=== PATIENT | male | born 1995 | race Caucasian/White ===

== ENCOUNTER 2017-06-01 16:03 | Inpatient (IN) | payer MEDICAID, OTHER ==
[2017-06-01 17:10] LABS: BASO # 0.1 K/uL (0.0-0.2); BASO % 0.8 % (0.0-2.0); EOS # 0.2 K/uL (0.0-0.7); EOS % 2.1 % (0.0-4.0); HEMOGLOBIN 16.2 g/dL (12.0-18.0); LYMPH # 3.6 K/uL (1.0-4.3); LYMPH % 31.5 % (20.0-40.0); MEAN CELL VOLUME 84.3 fL (80.0-94.0); MEAN CORPUSCULAR HEMOGLOBIN 28.2 pg (27.0-31.0); MEAN CORPUSCULAR HGB CONC 33.4 g/dL (33.0-37.0); MEAN PLATELET VOLUME 7.9 fL (7.2-11.7); MONO # 0.8 K/uL (0.0-0.8); NEUT # 6.7 K/uL (1.8-7.0); NEUT % 58.6 % (50.0-75.0); RBC 5.75 Mil/uL (4.40-5.90); RED CELL DISTRIBUTION WIDTH 13.2 % (11.5-14.5); WHITE BLOOD COUNT 11.4 K/uL (4.8-10.8)
[2017-06-01 17:13] LABS: SQUAMOUS EPITHIAL < 1 /hpf (0-5); URINE AMORPHOUS SEDIMENT RARE /ul (<OCC); URINE BILIRUBIN NEGATIVE (NEGATIVE); URINE BLOOD NEGATIVE (NEGATIVE); URINE CLARITY Hazy (Clear); URINE COLOR Yellow (YELLOW); URINE GLUCOSE (UA) NORMAL (Normal); URINE LEUKOCYTE ESTERASE NEG Leu/uL (Negative); URINE NITRATE NEGATIVE (NEGATIVE); URINE PROTEIN NEGATIVE (NEGATIVE); URINE UROBILINOGEN NORMAL mg/dL (0.2-1.0)
[2017-06-01 17:24] LABS: ACETAMINOPHEN < 10.0 ug/mL (10.0-30.0); SALICYLATE < 1.0 mg/dL 1
[2017-06-01 17:25] LABS: ALBUMIN 4.3 g/dL (3.5-5.0); ALT/SGPT 85 U/L (21-72); AST/SGOT 36 U/L (17-59); BLOOD UREA NITROGEN 13 mg/dL (9-20); GFR AFRICAN-AMERICAN > 60; GFR NON-AFRICAN AMERICAN > 60
[2017-06-01 17:26] LABS: BARBITURATES, UR NEGATIVE (NEGATIVE); BENZODIAZEPINES, UR NEGATIVE (NEGATIVE); OPIATES, UR NEGATIVE (NEGATIVE); PHENCYCLIDINE, UR NEGATIVE (NEGATIVE)
--- NOTE | 2017-06-01 17:51 | C.PDOC ---
History Of Present Illness Patient is a 21 y/o male who presents to the ED stating " I want to kill myself ". No plan. Patient denies seeing psychiatrist, Hx of antidepressants or admissions for similar complaints. Admits using cannabis a few nights ago and being a smoker. No pain. Time Seen by Provider: 06/01/17 16:36 Chief Complaint (Nursing): Psychiatric Evaluation History Per: Patient History/Exam Limitations: no limitations Current Symptoms Are (Timing): Still Present Associated Symptoms: Suicidal Thoughts. denies: Suicidal Plan Recent travel outside of the [place]: No Past Medical History Reviewed: Historical Data, Nursing Documentation, Vital Signs Vital Signs: Last Vital Signs Temp 98.4 F 06/01/17 18:27 Pulse 73 06/01/17 18:27 Resp 16 06/01/17 18:27 BP 128/80 06/01/17 18:27 Pulse Ox 98 06/01/17 18:27 - Medical History PMH: Anxiety, Asthma, Depression Surgical History: No Surg Hx Family History: States: No Known Family Hx - Social History Hx Tobacco Use: Yes Hx Alcohol Use: No Hx Substance Use: No - Immunization History Hx Tetanus Toxoid Vaccination: No Hx Influenza Vaccination: No Hx Pneumococcal Vaccination: No Review Of Systems Psych: Positive for: Suicidal ideation Physical Exam - Physical Exam Appears: Well, Non-toxic, No Acute Distress Skin: Normal Color, Warm, Dry Head: Atraumatic, Normacephalic Nose: Normal Oral Mucosa: Moist Chest: Symmetrical Cardiovascular: Rhythm Regular, No Murmur Respiratory: Normal Breath Sounds, No Accessory Muscle Use Neurological/Psych: Oriented x3, Normal Speech, Normal Cognition, No Romberg, Other (no focal deficits) ED Course And Treatment - Laboratory Results Result Diagrams: 06/01/17 17:05 06/01/17 17:05 O2 Sat by Pulse Oximetry: 98 Progress Note: Crisis notified. Patient is 1:1. tent worker evaluted pt and discussed case with Dr Mar, agreed upon admission. Disposition - Disposition Disposition: HOSPITALIZED Disposition Time: 18:54 Condition: STABLE - Clinical Impression Clinical Impression: MDD (major depressive disorder) - Scribe Statement The provider has reviewed the documentation as recorded by the Scribe Susan Bhat All medical record entries made by the Scribe were at my direction and personally dictated by me. I have reviewed the chart and agree that the record accurately reflects my personal performance of the history, physical exam, medical decision making, and the department course for this patient. I have also personally directed, reviewed, and agree with the discharge instructions and disposition.
--- NOTE | 2017-06-01 20:07 | PCM.BM ---
Treatment Plan Problems - Problems identified on initial assessmt Suicidal ideation Date Initiated: 06/01/17 Time Initiated: 19:45 Assessment reference: NA Status: Active Depression Date Initiated: 06/01/17 Time Initiated: 19:45 Assessment reference: NA Status: Active Treatment assets and liabiliti Patient Assests: cooperative, ADL independent, good support system, negotiates basic needs Patient Liabilities: substance abuse - Milieu Protocol Maintain good personal hygiene: daily Encourage regular showers, daily Remind patient to perform daily oral care, daily Assist patient to perform ADL's Maintain personal safety: every shift Educate patient to report safety concerns to staff, every shift Monitor environment for contraband/sharps Medication safety: Monitor for expected outcome, potential side effects: every shift, Assess barriers to learning: every shift, Assess readiness for medication education: every shift
[2017-06-01 22:43] VITALS: O2SAT 97
[2017-06-02] MEDS ORDERED: buPROPion SR 150 MG TABLET PO SCH (10:00)
[2017-06-03] MEDS ORDERED: Pneumococcal 23-Valent Vaccine IM ONE (10:00)
[2017-06-03] MEDS ORDERED: Influenza Vaccine 60 mcg/0.5 mL SYR (4YR UP) IM ONE (10:00)
[2017-06-03 10:21] VITALS: PULSE 75
--- NOTE | 2017-06-03 23:49 | PCM.PYCHPN ---
Psychiatric Progress Note - Psychiatric Progress Note Patient seen today, length of contact: 15 min Patient Chief Complaint: I am feeling little better.' Problems Identified/Issues Discussed: Patient seen and evaluated, chart reviewed and discussed with the nurse. He reports some improvement in his mood but still reports depressed mood, however, he denies any feelings of hopelessness and helplessness. Patient remained isolated, confined and withdrawn. he reports some improvement in his sleep and appetite. Patient is compliant with medications and denies any side effects. Symptoms are improving but need more time to stabilize. Support and psychoeducation given. a Medication Change: Yes (increase zoloft) Medical Record Reviewed: Yes Mental Status Examination - Cognitive Function Orientation: Person, Place, Situation, Time Memory: Intact Attention: WNL Concentration: Poor Association: WNL Fund of Knowledge: Poor - Mood Mood: Depressed, Anxious - Affect Affect: Constricted, Depressed - Speech Speech: Soft - Formal Thought Process Formal Thought Process: No Impairment - Suicidal Ideation Suicidal Ideation: No - Homicidal Ideation Homicidal Ideation: No Goal/Treatment Plan - Goal/Treatment Plan Need for Continued Stay: Severe depression anxiety, Severe functional impairment Progress Toward Problem(s) and Goals/Treatment Plan: Major depressive disorder recurrent severe without psychotic features CBT Psychoeducation Supportive therapy, individual therapy Increase Zoloft 50 mg PO daily Trazodone 50 mg PO Q HS Hydroxyzine 25 mg PO Q6 hr Cannabis use disorder moderate Monitor signs and symptoms Use ME for abstinence - Smoking Cessation Smoking Cessation Initiated: No
[2017-06-04 06:15] VITALS: BP 107/64; RESP 18; TEMP 97.6
--- NOTE | 2017-06-04 09:24 | PCM.PSYCH ---
Initial Psychiatric Evaluation - Initial Psychiatric Evaluation Legal Status: Capacity Chief Complaint (in patient's own words): I WANTED TO KILL MYSELF. Patient's Reaction to Hospitalization: I FEEL SAFE HERE History of Present Illness and Precipitating Events: PT IS A 21 YEAR OLD WHITE SINGLE DOMICILED EMPLOYED MALE WHO PRESENTED TO [facility] STATING HE HAD TO KILL HIMSELF. PT STATED HE HAS NEVER ATTEMPTED BUT THINKS ABOUT SUICIDE OFTEN HE LIVES WITH HIS PATERNAL GRANDPARENTS. HIS MOTHER WHEN HE WAS13 AND HIS FATHER WHEN HE WAS 18 YEARS OLD. THERE IS A FAMILY HISTORY OF DRUG USE WELL PSYCHIATRIC HISTORY BUT PT DOES NOT KNOW THE DETAILS. HE HAS NO LEGAL OR HISTORY. HE SMOKES CANNABIS SOME TIMES. HE HAS ADD AND ASTHMA. HE WENT UP TO THE 11TH GRADE AND WAS IN REGULAR CLASSES. HE DOES NOT HAVE A GED. HE IS WORKING A EELER AT A FOOD STORE. HE HAS A S0-SO APPETITE AND IS SLEEPING POORLY. HE HAS POOR SELF ESTEEM, ANERGY, AVOLITION AND ANHEDONIA. HE IS ISOLATIVE AND HAS TROUBLE COMMUNICATING WITH PEOPLE. HE MAKES POOR EYE CONTACT AND IS SOCIALLY AWKWARD PT THINKS HE IS AUTISTIC. PT THINKS PEOPLE ARE WATCHING AND JUDGING HIM Current Medications: Active Medications Generic Name Dose Route Start Last Admin Trade Name Freq PRN Reason Stop Dose Admin Hydroxyzine HCl 50 mg 06/01/17 20:20 06/02/17 17:21 Atarax PO 50 mg Q8 PRN Administration Anxiety Nicotine 1 patch 06/02/17 17:45 06/03/17 09:49 Nicoderm Cq TD 1 patch DAILY ULISSES Administration Sertraline HCl 100 mg 06/04/17 10:00 Zoloft PO DAILY ULISSES Trazodone HCl 50 mg 06/01/17 20:22 06/03/17 21:01 Desyrel PO 50 mg HS PRN Administration Insomnia Past Psychiatric History - Past Psychiatric History Prior Professional Help: IN HPI Pertinent Medical Hx (Current Medical&Sleep Prob, Allergies): Allergies Allergy/AdvReac Type Severity Reaction Status Date / Time No Known Allergies Allergy Verified 06/01/17 16:51 Review of Systems - EENT Eyes: UNREMARKABLE Nose/Mouth/Throat: UNREMARKABLE - Respiratory Respiratory: UNREMARKABLE - Gastrointestinal Gastrointestinal: UNREMARKABLE - Genitourinary Genitourinary: UNREMARKABLE - Reproductive: Male Reproductive:Male: UNREMARKABLE - Musculoskeletal Musculoskeletal: UNREMARKABLE - Integumentary Integumentary: UNREMARKABLE - Neurological Neurological: UNREMARKABLE - Psychiatric Psychiatric: Anhedonia, Anxiety, Change in Appetite, Depression, Difficulty Concentrating, Hopelessness, Suicidal Ideation - Endocrine Endocrine: UNREMARKABLE - Hematologic/Lymphatic Hematologic: UNREMARKABLE Mental Status Examination - Personal Presentation Personal Presentation: Looks older than stated age - Affect Affect: Constricted - Motor Activity Motor Activity: Calm - Reliability in Providing Information Reliability in Providing Information: Good - Speech Speech: Organized - Mood Mood: Depressed, Anxious - Obsessions/Compulsions Obsessions: None Compulsions: None - Cognitive Functions Orientation: Person, Place, Situation, Time Sensorium: Alert Attention/Concentration: Attentive Abstract Thinking: [place] Estimate of Intelligence: Average Judgement: Intact, as evidence by: Insight regarding need for hospitalization Memory: Recent intact, as evidence by: Ability to recall events of the day, Remote intact, as evidenced by: Abilit to recall sig. life events - Risk Risk: Suicidal - Strength & Assets Inventory Strength & Assets Inventory: Intelligence, Family support, Employment status - Limitations Limitations: Other DSM 5 DX - DSM 5 DSM 5 Diagnosis: MDD RECURRENT SEVERE WITHOUT PSYCHOTIC FEATURES [place] SUPPORTIVE PSYCHOTHERAPY CANNABIS USE DISORDER MILD CT CBT SUPPORTIVE PSYCHOTHERAPY - Smoking Cessation Smoking Cessation Initiated: No
--- NOTE | 2017-06-04 10:15 | PCM.PYCHDC ---
Mental Status Examination - Mental Status Examination Orientation: Person, Place, Situation, Time Memory: Intact Mood: Neutral Affect: Constricted Speech: Soft Attention: WNL Concentration: WNL Association: WNL Fund of Knowledge: WNL Formal Thought Process: No Impairment Description of patient's judgement and insight: good, fair Psychotic Thoughts and Behaviors: denies any AVH Suicidal Ideation: No Current Homicidal Ideation?: No Discharge Summary - Discharge Note Reason for Hospitalization: Pt is a 21 year old white single domiciled employed male who presented to [facility] stating he had to kill himself. Pt stated he has never attempted but thinks about suicide often he lives with his paternal grandparents. His mother when he was 13 and his father when he was 18 years old. There is a family history of drug use as well as psychiatric history but pt does not know the details. He has no legal or history. He smokes cannabis some times. He has add and asthma. He went up to the 11th grade and was in regular classes. He does not have a ged. 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 He has a s0-so appetite and is sleeping poorly. He has poor self-esteem, anergy, avolition and anhedonia. He is isolative and has trouble communicating with people. He makes poor eye contact and is socially awkward. Pt thinks he is autistic. Pt thinks people are watching and judging him Consultations:: List each consultation separately and include: 1. Reason for request. 2. Findings. 3. Follow-up Summary of Hospital Course include:: 1. Description of specific treatment plan utilized for patients during their course of treatmen. 2. Summarize the time- course for resolution of acute symptoms and/or regressed behaviors. 3. Describe issues identified and worked on during hospitalization. 4. Describe medication utilized. 5. Describe medical problems identified and treated. 6. Reassessment of suicide risk Summary of Hospital Course: During the course of his stay, patient (pt) started progressively improving and he no longer remained irritable, depressed, paranoid and suicidal. His mood was improved and he started attending groups and meetings and started socializing. Patient denied any feelings of hopelessness, helplessness, and worthlessness, denied any problem with the sleep or appetite, denied suicidal ideation or homicidal ideation. Pt denied any auditory or visual hallucinations. Some changes were made in his current medications and patient was discharged on following medications. He tolerated these medications very well and denied any side effects. CBT and ID were used. He was discharged to [facility]. - Final Diagnosis (DSM 5) Condition upon Discharge: STABLE DSM 5: Major depressive disorder recurrent severe without psychotic features Cannabis use disorder moderate Disposition: HOME/ ROUTINE Follow-up Treatment Plan: Education: Pt was educated and counseled about the risks and benefits of taking and not taking medications. Pt was educated and counseled about the risks of drinking and abusing drugs. Pt was educated and counseled to go to the ER or call 911 if pt develop suicidal ideation or homicidal ideation, worsening of symptoms or severe side effects of the meds. Prescriptions/Medication Reconciliation: [place] Carbonate [[place] Carbonate 300MG] 300 mg PO BID #20 cap Sertraline [Zoloft] 50 mg PO DAILY #30 tab traZODone [Desyrel] 50 mg PO HS PRN #30 tab PRN Reason: Insomnia - Smoking Cessation Smoking Cessation Medication prescribed: No - Antipsychotic Medications Pt discharged on 2 or more routine antipsychotic medications: No
== END 2017-06-04 11:36 | disposition home or self-care (01) | DRG 430 ==
LOC: C.ER 16:03 → C.5E 18:36 → C.9E 18:36
PROVIDERS: ADMIT Psychiatry & Neurology Psychiatry; ATTEND Psychiatry & Neurology Psychiatry
PROC: GZ3ZZZZ Medication Management (ICD-10-PCS; principal; 2017-06-01)
PROC: HZ99ZZZ Pharmacotherapy for Substance Abuse Treatment, Other Replacement Medication (ICD-10-PCS; 2017-06-01)
PROC: GZ56ZZZ Individual Psychotherapy, Supportive (ICD-10-PCS; 2017-06-01)
PROC: HZ56ZZZ Individual Psychotherapy for Substance Abuse Treatment, Psychoeducation (ICD-10-PCS; 2017-06-01)
DX: F33.2 Major depressive disorder, recurrent severe without psychotic features (principal); R45.851 Suicidal ideations; F12.10 Cannabis abuse, uncomplicated; J45.909 Unspecified asthma, uncomplicated; F17.210 Nicotine dependence, cigarettes, uncomplicated; Z23 Encounter for immunization

== ENCOUNTER 2018-10-22 19:27 | Emergency (ER) | payer MEDICAID | END 2018-10-22 23:07 | disposition home or self-care (01) | LOC: C.ER 19:27 ==